=== PATIENT | male | born 1945 | race Native Hawaiian/Other Pacific Islander ===

== ENCOUNTER 2018-05-07 07:03 | Day surgery (SDC) | payer MEDICARE ==
[2018-05-07] MEDS ORDERED: Lidocaine 4% (Laryng-O-Jet) Kit MM ONE (07:28)
[2018-05-07] MEDS ORDERED: Midazolam 2 MG/2 ML VIAL ONE (07:59)
[2018-05-07] MEDS ORDERED: Propofol 10 mg/ml Inj (20 ML) ONE (07:59)
[2018-05-07] MEDS ORDERED: Lidocaine Hydrochloride 5 ML INJ ONE (08:01)
[2018-05-07 09:42] VITALS: BMI 32.1
--- NOTE | 2018-05-08 13:29 | CARD ---
APPROVED REPORT Date of service: 05/07/2018 EXAM: Transesophageal echocardiogram with color flow Doppler and Synchronized Cardioversion. INDICATION Thrombus A-Flutter LEFT VENTRICLE The left ventricle is normal size. There is normal left ventricular wall thickness. There is mild global hypokinesis. EF 50-55%. There is mild global hypokinesis No left ventricle thrombus noted on this study. There is no ventricular septal defect visualized. There is no left ventricular aneurysm. RIGHT VENTRICLE The right ventricle is normal size. There is normal right ventricular wall thickness. The right ventricular systolic function is normal. ATRIA The left atrium size is normal. There is no thrombus in the left atrial appendage. The velocity is normal. The right atrium size is normal. The interatrial septum is intact with no evidence for an atrial septal defect. AORTIC VALVE The aortic valve is normal in structure. No aortic regurgitation is present. There is no aortic valvular vegetation. MITRAL VALVE The mitral valve is normal in structure. There is no evidence of mitral valve prolapse. There is no mitral valve stenosis. There is mild mitral regurgitation. TRICUSPID VALVE The tricuspid valve is normal in structure. There is mild tricuspid regurgitation. There is no tricuspid valve prolapse or vegetation. PULMONIC VALVE The pulmonary valve is normal in structure. There is no pulmonic valvular regurgitation. GREAT VESSELS The aortic root is mildly dilated. There is mild plaque in the descending aorta, measuring 0.7 cm. PERICARDIAL EFFUSION There is no pericardial effusion. There is no pleural effusion. <Conclusion> The left ventricle is normal size. There is mild global hypokinesis. EF 50-55%. There is mild global hypokinesis The left atrium size is normal. There is no thrombus in the left atrial appendage. The velocity is normal. There is mild mitral regurgitation. There is mild tricuspid regurgitation. There is mild plaque in the descending aorta, measuring 0.7 cm. Cardioversion was performed using 150 Joules. Patient was successfully converted to normal sinus rhythm.
== END 2018-05-07 10:30 | disposition home or self-care (01) ==
LOC: C.CATHLAB 07:03
PROVIDERS: ATTEND Internal Medicine Cardiovascular Disease
DX: I48.92 Unspecified atrial flutter (principal); I08.1 Rheumatic disorders of both mitral and tricuspid valves
CPT/HCPCS: 93312; J2001; J2250; J2704